=== PATIENT | female | born 1965 | race Caucasian/White ===

== ENCOUNTER 2019-05-11 16:11 | Emergency (ER) | payer SELFPAY ==
[~2019-05-11] VITALS: Ht 157.5 cm; Wt 70.3 kg
[2019-05-11 16:30] VITALS: BP_SYST 147
--- NOTE | 2019-05-11 16:32 | NUR ---
Patient to [facility] for evaluation. Side rails up. Report given to FRAN Mckeon.
--- NOTE | 2019-05-11 16:34 | NUR ---
Pt brought by police officers, A&OX4, pt presents to ER for medical clearance due to Hx of diabetes and fibromyalgia, pt denies any symptoms, skin pink and warm, cap refill <3. VSS.
--- NOTE | 2019-05-11 16:42 | NUR ---
Dr Zaman at bedside examining patient
[2019-05-11 17:12] VITALS: BP_SYST 147
--- NOTE | 2019-05-11 17:12 | NUR ---
Patient given written and verbal discharge instructions and verbalizes understanding. ER MD discussed with patient the results and treatment provided. Patient in stable condition. ID arm band removed. No Rx given. Patient educated on pain management and to follow up with PMD. Pain Scale 0/10 . Opportunity for questions provided and answered. Medication side effect fact sheet provided.
== END 2019-05-11 17:12 ==
LOC: SED 16:11
DX: Z02.89 Encounter for other administrative examinations (principal); E11.9 Type 2 diabetes mellitus without complications; I10 Essential (primary) hypertension; F41.9 Anxiety disorder, unspecified
CPT/HCPCS: 99283